=== PATIENT | male | born 1965 | race Caucasian/White ===

== ENCOUNTER 2021-08-28 17:25 | Inpatient (IN) | payer MEDICARE ==
[~2021-08-28] VITALS: Ht 175.3 cm; Wt 86.0 kg
[2021-08-28] MEDS ORDERED: CENTRUM SILVER1 EAC2 PO (18:04)
--- NOTE | 2021-08-28 18:30 | NUR ---
Admit note Received report from Ledy Cano at [facility] at approx 1443. Pt life flighted to [facility], admitted to room at approx 1705. Pt reports having "palpitations" on/off for "sometime", recently pt reports having lightheadedness and then the palpitations and numbness and tingling in extremities lasting a few seconds to a few minutes episodes. Pt alert, oriented X4; calm and cooperative with care. Pt oriented to room and call light. Educated on fall risk. Pt denies chest pain/pressure, palpitation, sob, nausea, dizziness/lightheadedness and numbness/tingling at this time. Ls clear, spo2 >90% on ra, resp wnl. Tele sinus/sinus tach 90-100's, no runs of vtach since admission noted, bp stable. Pt reports last bm 08/27/21, bt hypoactive t/o, abd soft, non-tender. Dr Kang at bedside, new orders for amiodarone gtt at 0.5 for 18 hours, orders for dinner, then npo. Vss. No other s/sx of distress noted. Will continue to monitor unitl report given to oncoming rn.
[2021-08-28 19:12] LABS: Magnesium, Blood 2.5 mg/dL (1.6-2.4)
--- NOTE | 2021-08-28 21:42 | NUR ---
Assumed care 1900. VSS on RA. No complaints of pain. Amio gtt is running as well as the 1L of fluids (NS) at 75ml/hr. Call light within reach. Pt came to visit pt and was updated, she will be back in the AM. Tele: sinus 80s. Will continue to monitor.
--- NOTE | 2021-08-29 00:05 | NUR ---
HR dropped 50s briefly, but has been mainly sustaining in 60s. VSS checked again and VSS stable, asymptomatic. Pt has been sleeping during bradycardia episode. When I woke pt up to take vitals, HR jumped back up to 70-80s. microelectronics technician reported rythm as sinus arrythmia. Will continue to monitor.
[2021-08-29 02:37] LABS: BASOPHILS ABSOLUTE AUTO 0.06 K/mm3 (0.00-0.23); BASOPHILS PERCENT AUTO 1 % (0-2); EOSINOPHILS ABSOLUTE AUTO 0.14 K/mm3 (0.00-0.68); EOSINOPHILS PERCENT AUTO 2 % (0-6); Hematocrit 46.3 % (37.0-53.0); Hemoglobin 15.8 g/dL (13.5-17.5); IMMATURE GRAN ABSOLUTE AUTO 0.06 K/mm3 (0.00-0.10); IMMATURE GRAN PERCENT AUTO 1 % (0-1); LYMPHOCYTES ABSOLUTE AUTO 2.36 K/mm3 (0.84-5.20); LYMPHOCYTES PERCENT AUTO 26 % (21-46); MONOCYTES ABSOLUTE AUTO 0.65 K/mm3 (0.16-1.47); MONOCYTES PERCENT AUTO 7 % (4-13); Mean Corpuscular HGB 30.9 pg (26.0-34.0); Mean Corpuscular HGB Conc 34.1 g/dL (31.5-36.5); Mean Corpuscular Volume 90 fL (80-100); Mean Platelet Volume 9.1 fL (9.1-12.4); NEUTROPHILS ABSOLUTE AUTO 5.81 K/mm3 (1.96-9.15); NEUTROPHILS PERCENT AUTO 64 % (41-73); Platelet Count 237 K/mm3 (150-400); RDW Coefficient Variation 12.3 % (11.7-14.2); RDW Standard Deviation 40.8 fL (35.1-46.3); Red Blood Cell Count 5.12 M/mm3 (4.30-5.90); White Blood Cell Count 9.08 K/mm3 (4.00-11.30)
[2021-08-29 02:46] LABS: Albumin, Blood 3.6 g/dL (3.4-5.0); Albumin/Globulin Ratio 1.2 (0.8-1.8); Bilirubin, Total 0.6 mg/dL (0.1-1.0); Bun/Creatinine Ratio 16.6 (12.0-20.0); Calcium, Blood 8.6 mg/dL (8.5-10.1); Creatinine, Blood 0.9 mg/dL (0.60-1.20); Potassium, Blood 3.9 mmol/L (3.5-5.5); Total Protein, Blood 6.6 g/dL (6.4-8.2)
--- NOTE | 2021-08-29 04:45 | NUR ---
Marketing Director Assisted Living Note: A&O, pleasant with cares. VSS on RA. Tele: sinus arrythmia 60-70s mainly, pt did drop into 50s off and on throughout the night, asymptomatic and VSS. K: 3.9 and Mg was 2.5. Amiodarone gtt ran overnight as well as the 1L of fluids ordered, see MAR. did come to visit pt and was updated.
--- NOTE | 2021-08-29 08:19 | NUR ---
AM NOTE PATIENT IS PLEASANT, COOPERATIVE WITH CARE, AND A&OX4. TELE NSR 70S. SPO2>95% RA. VSS. DENIES CP/PRESSURE, SOB, N/V, NUMBNESS/TINGLING. REMAINED NPO T/O THE NIGHT, ECHO IS BEING COMPLETED AT BEDSIDE THIS AM. PATIENT REMAINS INDEPENDENT, SBA. SPOUSE AT BEDSIDE TODAY VISITING. NEELAM LUCERO PER EMAR.
--- NOTE | 2021-08-29 10:55 | NUR ---
Spiritual care referral received and processed. Patient is lying in bed and alert. Patient's spouse, Alba, is bedside. Pt is tearful as soon as I introduce myself and he begins talking about his medical problems. 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 and that he is afraid that his medical issues may impact his job. He also mentions his fears regarding possible surgeries or transport to yet another facility. He also shares about his Yazidi keira and that it is an important ingredient for his stability during this time. I provide anxiety containment, normalize his experience and provide pastoral outreach counselor and prayer. Pt becomes tearful again during the prayer and mentions that the prayer was very meaningful and he voices his appreciation for it. Pt and Alba respond well and show signs of increased peace. I will continue to remain available to patient and family.
--- NOTE | 2021-08-29 15:37 | NUR ---
Echocardiogram performed.
[2021-08-29 16:17] LABS: SARS-Cov-2 (COVID-19) PCR, MMC NEGATIVE (NEGATIVE)
--- NOTE | 2021-08-29 16:28 | NUR ---
SHIFT SUMMARY PATIENT REMAINED PLEASANT, COOPERATIVE W CARE, AND A&OX4 T/O THE SHIFT. AMIO GTT HAD FINISHED. TELE SR 70S. SPO2>95% RA. VSS STABLE. SBA. TECHNICAL RESEARCH SCIENTIST AT BEDSIDE TODAY. PLAN ON LOSS PREVENTION ASSOCIATE TOMORROW. PATIENT TO BE NPO AFTER MIDNIGHT. PATIENT CONTINUES TO DENY CP/PRESSURE, SOB, N/V, NUMBNESS/TINGLING. WILL CONTINUE TO MONITOR UNTIL REPORT GIVEN TO THE ONCOMING SHIFT.
--- NOTE | 2021-08-29 16:48 | NUR ---
I have reviewed the clinical nursing manager documenation and am in agreement. Notified Dr Alves the amio gtt stopped, new orders to restart gtt at this time and NPO at midnight for angio tomorrow. Vss. No other acute changes noted, will continue to monitor unitl report given to oncoming rn.
--- NOTE | 2021-08-29 20:01 | NUR ---
Assumed care 1900. VSS on RA. Amiodarone gtt is running at 16.7ml/hr in right AC. Tele: sinus rythm 70s. Pt will be NPO at midnight for heart cath. I asked pt if he had any questions regarding heart cath tomorrow and I answered the questions he had. Will continue to monitor.
--- NOTE | 2021-08-30 04:29 | NUR ---
Wine Consultant note: Pt is A&O, pleasant with cares. VSS on RA. Tele: SR 60-80s. Amiodarone gtt continued overnight per orders. Pt has been NPO since midnight. No ectopy reported by tele overnight. Pt slept well.
--- NOTE | 2021-08-30 07:14 | NUR ---
ASSUMED CARE: PT RESTING QUIETLY AT THIS TIME. NSR ON TELE IN 70S. AMIO GTT RUNNING. NO ACUTE NEEDS AT THIS TIME.
--- NOTE | 2021-08-30 10:31 | NUR ---
PT TAKEN TO [facility] VIA BED BY CONTROL TECHNICIAN STAFF
--- NOTE | 2021-08-30 11:39 | NUR ---
PT RETURNED FROM [facility] WITH TR BAND IN PLACE AT 11CC. STAFF STATES TEST WAS CLEAR WITH NO INTERVENTION NEEDED. DISCUSSED THIS WITH PT AND FAMILY AND EXPLAINED TO PT IMPORTANCE OF WRIST PRECAUTIONS. TR SITE CLEAN AND DRY WITH NO SIGN OF BRUISING OR BLEEDING. NO ACUTE NEEDS AT THIS TIME.
--- NOTE | 2021-08-30 12:04 | NUR ---
DR BRAN CAME TO SEE PT AFTER PROCEDURE AND STATED THAT HE IS OK TO GO HOME AFTER TR SITE IS RECOVERED. DR WANTS PT TO FOLLOW UP WITH EP. PT WOULD PREFER [facility]UE TO L[facility]ING IN [place]. CONTACTED JUDITH AT [facility] WHO IS COORDINATING THAT. CALL TO DR TURNER TO MAKE HER AWARE THAT DC CAN OCCUR TODAY. DR TURNER TO REVIEW
[2021-08-30] MEDS ORDERED: METO25 PO (12:46)
--- NOTE | 2021-08-30 13:00 | NUR ---
Patient is much more hopeful today and is pleased about the results from the angiogram. Pt and spouse are feeling the stressors of still not knowing the root cause of the original symptoms and of the mounting bills (medical bills and Alba's hotel bill, as they live in [place]). I provide therapeutic listening, anxiety containment and prayer. Pt and Alba respond well and show signs of decreased stress.
--- NOTE | 2021-08-30 13:15 | NUR ---
TR BAND SITE WITH NO SWELLING, BRUISING OR SIGNS OF BLEEDING. 2CC REMOVED FROM SITE. NO ACUTE NEEDS AT THIS TIME.
--- NOTE | 2021-08-30 18:21 | NUR ---
COLLATOR REVIEWED PT'S DISCHARGE ORDERS WITH HIM INCLUDING SITE CARE OF TR BAND. SITE RECOVERED WITH DRESSING IN PLACE. NO SIGN OF BLEEDING, BRUISING OR SWELLING. COLLATOR ADMINISTERED PM METOPROLOL EARLY SINCE PT IS GOING TO [place] AND WAS NOT GOING TO BE ABLE TO GET TO HIS PHARMACY IN TIME. IV'S DC'D WNL. IN ROOM WHEN INSTRUCTIONS WERE GIVEN. NO ACUTE NEEDS OR CONCERNS. AMBULATORY UPON DISCHARGE.
== END 2021-08-30 18:15 | disposition home or self-care (01) | DRG 287 ==
LOC: PCU 17:25
PROVIDERS: Internal Medicine Cardiovascular Disease; ADMIT Internal Medicine
PROC: 4A023N7 Measurement of Cardiac Sampling and Pressure, Left Heart, Percutaneous Approach (ICD-10-PCS; principal; 2021-08-30)
PROC: B2111ZZ Fluoroscopy of Multiple Coronary Arteries using Low Osmolar Contrast (ICD-10-PCS; 2021-08-30)
DX: I47.2 Ventricular tachycardia (principal); I44.7 Left bundle-branch block, unspecified; Z20.822 Contact with and (suspected) exposure to COVID-19; Z79.899 Other long term (current) drug therapy
CPT/HCPCS: 36415; 80053; 82550; 83735; 83880; 84484; 85025; 93005; 93010; 93306; 93458; 96372; 96374; 99152; 99153; A9270; C1769; C1887; C1894; G0378; J0282; J1644; J1650; J2250; J3010; J7030; J7040; J7060; Q9967; U0004